=== PATIENT | male | born 1980 | race Caucasian/White ===

== ENCOUNTER 2016-10-19 18:35 | Emergency (ER) | payer OTHER ==
[~2016-10-19] VITALS: Ht 175.3 cm; Wt 99.8 kg
[2016-10-19] MEDS ORDERED: MUCINEX100 MG PO (18:49)
[2016-10-19] MEDS ORDERED: NORCO 5-325 TA1 EACH PO (20:25)
[2016-10-19] MEDS ORDERED: CRUTCH1 EACH (20:26)
== END 2016-10-19 20:40 | disposition home or self-care (01) ==
LOC: ED 18:35
DX: S93.402A Sprain of unspecified ligament of left ankle, initial encounter (principal); W10.8XXA Fall (on) (from) other stairs and steps, initial encounter
CPT/HCPCS: 73610; 99283

== ENCOUNTER 2018-07-28 17:14 | Inpatient (IN) | payer OTHER ==
[~2018-07-28] VITALS: Ht 175.3 cm; Wt 104.1 kg
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
[~2018-07-28 17:14] MED LIST: CRUTCH1 EACH; MUCINEX100 MG PO; NORCO 5-325 TA1 EACH PO
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
--- NOTE | 2018-07-28 20:05 | NUR ---
PATIENTS ADMISSION COMPLETED. PATIENT OREINTED TO FLOOR, ROOM AND CALL LIGHT. PATIENT DENIES ANY COMMENTS, QUESTIONS OR CONCERNS. NO NEEDS NOTED. CALL LIGHT IN REACH. AND FAMILY IS AT THE BEDSIDE. JAYESH GRAVES RN IN THE ROOM.
--- NOTE | 2018-07-28 20:07 | NUR ---
PT ARRIVES TO FLOOR VIA STRETCHER. PT ABLE TO SCOOT HIM SELF INDEPENDELTY TO HOSPITAL BED. PT RATES PAIN 4-5/10 STATES THIS IS TOLERABLE. PT DENIES NAUSEA OR SOB. PT ASSESSMENT COMPLETE. DRESSING TO R THIGH C/D/I. CMS INTACT. SCD'S IN PLACE. R LEG ELEVATED. PT FAMILY AT BEDSIDE. PT ORIENTED TO ROOM AND POC FOR THIS SHIFT. CALL LIGHT IN REACH. PT DENIES NEEDS AT THIS TIME.
--- NOTE | 2018-07-28 20:46 | NUR ---
PT REPORTS PAIN INCREASING TO ~6/10, WITH SHOOTING UP TO 10/10. PT AGREES TO START WITH TORADOL IV, ADMINISTERED. EDUCATION PROVIDED REGARDING AVAILABILITY OF NARCOTIC PAIN MEDICATION. PT STATES UNDERSTANDING BUT SHAKES HEAD, "NO". PT STATES THAT HE NEEDS TO URINATE. URINAL PROVIDED. PT WONDERS IF CAN BRING HIM DINNER. PT DENIES OTHER NEEDS AT THIS TIME. CALL LIGHT IN REACH. FAMILY AT BEDSIDE.
--- NOTE | 2018-07-28 21:32 | NUR ---
PT REPORTS CONTINUED PAIN, UP TO 12/12. PRN MORPHINE, 4 MG ADMINISTERED. EDUCATION REGARDING PAIN MEDICATION AND SAFETY PROVIDED. PT DENIES FURTHER QUESTIONS AT THIS TIME. VISITING WITH FAMILY AT BEDSIDE.
--- NOTE | 2018-07-28 22:28 | NUR ---
PT UTILIZES CALL LIGHT, REPORTS PAIN TO R THIGH, 09/11. REQUESTS ADDITIONAL PAIN MEDICATION. STATES THAT "SHOOTING PAIN HAS STOPPED", BUT THAT THROBBING PAIN IS STILL PRESENT. PT DENIES FURTHER NEEDS. PT WENT TO GET PT FOOD. CALL LIGHT WITHIN REACH.
--- NOTE | 2018-07-29 00:53 | NUR ---
PT UTILIZES CALL LIGHT, REPORTS PAIN TO R THIGH 7-8/10. PRN PERCOCET, 2 TABS, ADMINISTERED. PT RESTING IN BED WITH AT BEDSIDE, ATE PIZZA. TOLERATED WELL. PT DENIES FURTHER NEEDS AT THIS TIME. CALL LIGHT WITHIN REACH.
--- NOTE | 2018-07-29 01:33 | NUR ---
PT ASSESSMENT COMPLETE. PT REPORTS R SIDED SCD PUMP CAUSING INCREASED PAIN, REMOVED FOR COMFORT. DRESSING TO R THIGH D/I. SMALL AMOUNT OF SHADOWING PRESENT TO KERLEX BELOW ACEWRAP. CMS INTACT. PT REPORTS LOCAL NUMBNESS TO THIGH. PT'S CONTINUES AT BEDSIDE. NEEDS DENIED AT THIS TIME. CALL LIGHT IN REACH.
--- NOTE | 2018-07-29 03:22 | NUR ---
PT UTILIZES CALL LIGHT, REPORTS THAT PAIN IS INCREASING TO 7/10. REQUESTS ADDITIONAL PRN PAIN MEDICATION. PRN MORPHINE, 2 MG, ADMINISTERED. PT DENIES FURTHER NEEDS AT THIS TIME. CALL LIGHT IN REACH. PT'S SLEEPING AT BEDSIDE.
--- NOTE | 2018-07-29 04:40 | NUR ---
pt resting in bed with eyes closed. respirations are even and unlabored. pt appears to be sleeping, does not wake while proposal writer in doorway. pt's sleeping on couch. call light in reach.
--- NOTE | 2018-07-29 06:29 | NUR ---
PT ASSESSMENT COMPLETE. PT UTILIZES CALL LIGHT, REQUESTS PAIN MEDICATION FOR 7/10 PAIN TO R THIGH. KERLEX BELOW BHARATI WRAP CONTINUES WITH UNCHANGED AMOUNT OF SHADOWING. CMS INTACT TO ALL EXTREMITIES. PT CONTINUES TO REPORT LOCAL NUMBNESS TO R THIGH. PT DENIES FURTHER NEEDS AT THIS TIME. QUESTIONS WHEN HE WILL GET TO GO HOME. EDUCATION PROVIDED. CALL LIGHT IN REACH. PT'S AWAKE ON COUCH.
--- NOTE | 2018-07-29 06:41 | NUR ---
PT SLEPT FOR SHORT TIME THIS SHIFT. PERCOCET, MORPHINE, AND TORADOL FOR PAIN. NO NAUSEA OR SOB. ABD, KERLEX, AND BHARATI TO R THIGH. SMALL SHADOWING TO KERLEX, UNCHANGED THIS SHIFT. NUMB LOCALLY PER PT. CMS INTACT. SCD REMOVED ON R DUE TO CAUSING INCREASE PAIN. SCD TO L LEG ONLY. PT USING URINAL THIS SHIFT. UO QS. D5LR @ 85.
--- NOTE | 2018-07-29 09:44 | NUR ---
PT RESTING IN BED. DROWSY BUT EASILY AWAKENS. REPORTS 9/10 PAIN IN RIGHT THIGH. MEDICATED WITH 0.5MG IV DILAUDID. DID NOT ORDER BREAKFAST, REPORTS DECREASED APPETITE, DENIES NAUSEA. RIGHT THIGH DRESSED WITH GAUZE, ABD, AND BHARATI WRAP, DRESSING CDI. PT REPORTS NUMBNESS JUST ABOVE THE KNEE BUT CMS OTHERWISE INTACT. IV INFUSING WNL. AT BEDSIDE. CALL LIGHT WITHIN REACH.
--- NOTE | 2018-07-29 10:09 | NUR ---
PATIENT IN BED WATCHING TV, VISITORS IN ROOM. CALL LIGHT IN REACH. NO FURTHER NEEDS AT THIS TIME.
--- NOTE | 2018-07-29 11:10 | NUR ---
PT MINIMAL TO NO ASSIST GETTING OUT OF BED. REPORTED SEVERE PAIN WITH MOVEMENT. ABLE TO STAND AND ATTEMPTED TO AMB WITH WALKER BUT TOO PAINFUL. BACK TO BED. MEDICATED WITH 2 TABS PERCOCET. CALL LIGHT WITHIN REACH.
--- NOTE | 2018-07-29 11:52 | NUR ---
PT AMB HALLWAY WITH P.T. USING CRUTCHES. PAINFUL WITH MOVEMENT BUT TANYA WELL.
[2018-07-29] MEDS ORDERED: IBUPROFEN600 MG PT (11:59)
[2018-07-29] MEDS ORDERED: OXYCODON-ACETA1 EAC2 PO (12:00)
[2018-07-29] MEDS ORDERED: TYLENOL325 MG PO (12:00)
[2018-07-29] MEDS ORDERED: [UNRECOGNIZED DRUG - SUPPLY] TOP (12:06)
[2018-07-29] MEDS ORDERED: HIBICLENS118 ML TOP (12:06)
--- NOTE | 2018-07-29 12:15 | NUR ---
DR. AWAD TOOK DOWN DRESSING AND REMOVED PACKING THIS AM. REDRESSED WITH GAUZE AND BHARATI. SMALL AMOUNT OF BRIGHT RED DRAINAGE ON OLD DRESSING. PT SITTING UP IN BED. AT BEDSIDE. CALL LIGHT WITHIN REACH.
== END 2018-07-29 13:50 | disposition home or self-care (01) | DRG 605 ==
LOC: ED 17:14 → MS 18:06
PROVIDERS: ADMIT Surgery
PROC: 0JCL0ZZ Extirpation of Matter from Right Upper Leg Subcutaneous Tissue and Fascia, Open Approach (ICD-10-PCS; principal; 2018-07-28 18:09)
DX: S71.131A Puncture wound without foreign body, right thigh, initial encounter (principal); W32.0XXA Accidental handgun discharge, initial encounter
CPT/HCPCS: 00400; 36415; 72170; 73552; 80048; 80053; 82150; 82550; 83690; 85025; 86850; 86900; 86901; 90471; 90715; 96374; 96375; 97161; 99285-25; G0480; J0330; J0690; J1100; J1170; J1644; J1885; J2250; J2270; J2405; J2704; J2765; J3010; J7030; J7120

== ENCOUNTER 2019-07-16 17:36 | Emergency (ER) | payer OTHER ==
[~2019-07-16] VITALS: Ht 175.3 cm; Wt 99.8 kg
[~2019-07-16 17:36] MED LIST changes: +HIBICLENS118 ML TOP; +IBUPROFEN600 MG PT; +OXYCODON-ACETA1 EAC2 PO; +TYLENOL325 MG PO; +[UNRECOGNIZED DRUG - SUPPLY] TOP
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
[2019-07-16] MEDS ORDERED: LISINOPRIL-HCT1 EACH PO (17:47)
[2019-07-16] MEDS ORDERED: ADDERALL XR 2525 MG PO (17:50)
[2019-07-16] MEDS ORDERED: KEFLEX500 MG PO (21:50)
--- NOTE | 2019-07-17 15:55 | EKG ---
[facility] [address] [facility] [place] [address] Signed Normal sinus rhythm Possible Left atrial enlargement Possible Inferior infarct , age undetermined Abnormal ECG No previous ECGs available Confirmed by RADU GREEN MD ([id number]) on 07/17/2019 3:55:00 PM Electronically Signed By: RADU GREEN MD 07/17/19 1555 PATIENT NAME: ARCELIA BECKHAM LUIS CARLOS Electrocardiogram DATE OF : 84 PHYSICIAN: RADU GREEN MD REPORT #: [id number] REPORT IS CONFIDENTIAL AND NOT TO BE RELEASED WITHOUT AUTHORIZATION
--- NOTE | 2019-07-17 15:55 | EKG ---
[facility] [address] [facility] [place] [address] Signed Normal sinus rhythm Inferior infarct (cited on or before 16-JUL-2019) Abnormal ECG When compared with ECG of 16-JUL-2019 17:57, (Unconfirmed) No significant change was found Confirmed by RADU GREEN MD ([id number]) on 07/17/2019 3:55:15 PM Electronically Signed By: RADU GREEN MD 07/17/19 1555 PATIENT NAME: ARCELIA BECKHAM Electrocardiogram DATE OF : 84 PHYSICIAN: RADU GREEN MD REPORT #: [id number] REPORT IS CONFIDENTIAL AND NOT TO BE RELEASED WITHOUT AUTHORIZATION
== END 2019-07-16 21:57 | disposition home or self-care (01) ==
LOC: ED 17:36
DX: R55 Syncope and collapse (principal); I10 Essential (primary) hypertension; Z79.899 Other long term (current) drug therapy
CPT/HCPCS: 71045; 80053; 84484; 85025; 93005; 93010; 99284-25; A9270

== ENCOUNTER 2020-07-12 02:50 | Emergency (ER) | payer OTHER ==
[~2020-07-12] VITALS: Ht 175.3 cm; Wt 102.1 kg
[~2020-07-12 02:50] MED LIST changes: +ADDERALL XR 2525 MG PO; +KEFLEX500 MG PO; +LISINOPRIL-HCT1 EACH PO
--- OUTSIDE RECORDS SUMMARY | 2020-07-12 02:52 | XMS ---
PreManage Notification: ARCELIA BECKHAM Security Ui Ux Engineer Events No recent Security Events currently on file CRITERIA MET - [facility] CARE PROVIDERS There are no care providers on record at this time. Tania has no Care Guidelines for this patient. Josias VISIT COUNT (12 MO.) 2 JESSICA Rosado TOTAL 2 NOTE: Visits indicate total known visits. ED/C VISIT TRACKING (12 MO.) 07/12/2020 02:50 [facility] TYPE: Emergency COMPLAINT: - LT KNEE PAIN 07/16/2019 17:37 [facility] OR TYPE: Emergency COMPLAINT: - DIZZINESS/NECK PAIN DIAGNOSES: - Dizziness and giddiness - Syncope and collapse - Essential (primary) hypertension - Other roasterman (current) drug therapy INPATIENT VISIT TRACKING (12 MO.) No inpatient visits to display in this time frame [email or web address]
[2020-07-12] MEDS ORDERED: HYDROCHLOROTH12.5 MG PO (03:06)
[2020-07-12] MEDS ORDERED: DICLOFENAC SODI75 MG PO (03:26)
[2020-07-12] MEDS ORDERED: HYDROCODON-ACE1 EA10 PO (03:26)
== END 2020-07-12 03:57 | disposition home or self-care (01) ==
LOC: ED 02:50
DX: M25.562 Pain in left knee (principal); I10 Essential (primary) hypertension; Z79.899 Other long term (current) drug therapy
CPT/HCPCS: 73560; 99283-25

== ENCOUNTER 2021-08-01 15:31 | Emergency (ER) | payer OTHER ==
[~2021-08-01] VITALS: Ht 175.3 cm; Wt 102.1 kg
[~2021-08-01 15:31] MED LIST changes: +DICLOFENAC SODI75 MG PO; +HYDROCHLOROTH12.5 MG PO; +HYDROCODON-ACE1 EA10 PO
--- OUTSIDE RECORDS SUMMARY | 2021-08-01 15:34 | XMS ---
PreManage Notification: ARCELIA BECKHAM Security Plaque Maker Events No recent Security Events currently on file CRITERIA MET - [facility] CARE PROVIDERS LISS LUIS Physician Brick Washer 07/12/2020-Current PHONE: Unknown Tania has no Care Guidelines for this patient. Josias VISIT COUNT (12 MO.) 1 JESSICA Rosado TOTAL 1 NOTE: Visits indicate total known visits. ED/UCC VISIT TRACKING (12 MO.) 08/01/2021 15:32 [facility] OR TYPE: Emergency COMPLAINT: - RT SIDED FACIAL NUMBNESS INPATIENT VISIT TRACKING (12 MO.) No inpatient visits to display in this time frame [email or web address]
[2021-08-01] MEDS ORDERED: ACYCLOVIR800 MG PO (15:57)
[2021-08-01] MEDS ORDERED: PREDNISONE20 MG PO (15:57)
== END 2021-08-01 16:55 | disposition home or self-care (01) ==
LOC: ED 15:31
DX: G51.0 Bell's palsy (principal); I10 Essential (primary) hypertension
CPT/HCPCS: 99283

== ENCOUNTER 2022-04-27 14:00 | Emergency (ER) | payer OTHER ==
[~2022-04-27] VITALS: Ht 175.3 cm; Wt 111.1 kg
[~2022-04-27 14:00] MED LIST changes: +ACYCLOVIR800 MG PO; +PREDNISONE20 MG PO
--- NOTE | 2022-04-28 07:21 | EKG ---
[facility] [address] [place] [address] Signed Sinus tachycardia Inferior infarct (cited on or before 16-JUL-2019) Abnormal ECG When compared with ECG of 16-JUL-2019 21:06, Vent. rate has increased BY 52 BPM Confirmed by REMY LANDIN MD ([id number]) on 04/28/2022 7:21:19 AM Electronically Signed By: REMY LANDIN MD 04/28/22 0721 PATIENT NAME: ARCELIA BECKHAM Electrocardiogram DATE OF : 84 PHYSICIAN: REMY LANDIN MD REPORT #: [id number] REPORT IS CONFIDENTIAL AND NOT TO BE RELEASED WITHOUT AUTHORIZATION
[2022-04-28] MEDS ORDERED: METOPROLOL SUCC50 MG PO (09:56)
== END 2022-04-27 19:06 | disposition home or self-care (01) ==
LOC: ED 14:00
DX: I16.0 Hypertensive urgency (principal); F14.10 Cocaine abuse, uncomplicated; I10 Essential (primary) hypertension; Z79.899 Other long term (current) drug therapy
CPT/HCPCS: 36415; 80053; 81003; 84443; 84484; 85025; 85379; 93005; 93010; 96361; 96374; 96375; 96376; 99285-25; J0360; J2060; J7121

== ENCOUNTER 2022-04-28 08:57 | Emergency (ER) | payer OTHER ==
[~2022-04-28] VITALS: Ht 175.3 cm; Wt 111.1 kg
--- OUTSIDE RECORDS SUMMARY | 2022-04-28 09:06 | XMS ---
PreManage Notification: ARCELIA BECKHAM Security Health Information Management Director Events No recent Security Events currently on file CRITERIA MET - [facility] - 2 Visits in 30 Days CARE PROVIDERS LISS LUIS Physician 07/12/2020-Current PHONE: Unknown Tania has no Care Guidelines for this patient. Josias VISIT COUNT (12 MO.) 3 [facility] TOTAL 3 NOTE: Visits indicate total known visits. ED/UCC VISIT TRACKING (12 MO.) 04/28/2022 08:57 [facility] TYPE: Emergency COMPLAINT: - FAST HEART RATE, HIGH B/P, ANXIETY 04/27/2022 14:00 [facility] TYPE: Emergency COMPLAINT: - HEART PALPITATIONS 08/01/2021 15:32 [facility] OR TYPE: Emergency COMPLAINT: - RT SIDED FACIAL NUMBNESS DIAGNOSES: - Essential (primary) hypertension - Harris's palsy - Facial weakness INPATIENT VISIT TRACKING (12 MO.) No inpatient visits to display in this time frame [email or web address]
[2022-04-28] MEDS ORDERED: METOPROLOL SUCC50 MG PO (09:56)
--- NOTE | 2022-04-29 07:28 | EKG ---
[facility] [address] [facility] [place] [address] Signed Sinus tachycardia T wave abnormality, consider inferior ischemia Abnormal ECG Confirmed by REMY LANDIN MD ([id number]) on 04/29/2022 7:28:07 AM Electronically Signed By: REMY LANDIN MD 04/29/22 0728 PATIENT NAME: ARCELIA BECKHAM LUIS CARLOS Electrocardiogram DATE OF : 84 PHYSICIAN: REMY LANDIN MD REPORT #: [id number] REPORT IS CONFIDENTIAL AND NOT TO BE RELEASED WITHOUT AUTHORIZATION
[2022-04-29] MEDS ORDERED: HYDROXYZINE HCL25 MG PO (22:50)
== END 2022-04-28 10:44 | disposition home or self-care (01) ==
LOC: ED 08:57
DX: I10 Essential (primary) hypertension (principal)
CPT/HCPCS: 36415; 71045; 80053; 84484; 85025; 93005; 93010; 96374; 96375; 99285-25; J2060; J7030

== ENCOUNTER 2022-04-29 21:30 | Emergency (ER) | payer OTHER ==
[~2022-04-29] VITALS: Ht 175.3 cm; Wt 111.1 kg
[~2022-04-29 21:30] MED LIST changes: +METOPROLOL SUCC50 MG PO
--- OUTSIDE RECORDS SUMMARY | 2022-04-29 21:34 | XMS ---
PreManage Notification: ARCELIA BECKHAM Security Band Machine Operator Events No recent Security Events currently on file CRITERIA MET - [facility] - 2 Visits in 30 Days CARE PROVIDERS LISS LUIS Physician 07/12/2020-Current PHONE: Unknown Tania has no Care Guidelines for this patient. Josias VISIT COUNT (12 MO.) 4 [facility] TOTAL 4 NOTE: Visits indicate total known visits. ED/C VISIT TRACKING (12 MO.) 04/29/2022 21:31 [facility] TYPE: Emergency COMPLAINT: - PANIC ATTACK HIGH BLOOD PRESSURE 04/28/2022 08:57 [facility] OR TYPE: Emergency COMPLAINT: - FAST HEART RATE, HIGH B/P, ANXIETY 04/27/2022 14:00 [facility] TYPE: Emergency COMPLAINT: - HEART PALPITATIONS DIAGNOSES: - Other nursing home (current) drug therapy - Essential (primary) hypertension - Cocaine abuse, uncomplicated - Palpitations - Hypertensive urgency 08/01/2021 15:[address] [facility] TYPE: Emergency COMPLAINT: - RT SIDED FACIAL NUMBNESS DIAGNOSES: - Harris's palsy - Facial weakness - Essential (primary) hypertension INPATIENT VISIT TRACKING (12 MO.) No inpatient visits to display in this time frame [id number]
[2022-04-29] MEDS ORDERED: HYDROXYZINE HCL25 MG PO (22:50)
[2022-04-30] MEDS ORDERED: ZESTRIL20 MG PO (00:15)
[2022-05-01] MEDS ORDERED: HYDROCODON-ACE1 EA10 PO (06:29)
== END 2022-04-30 00:30 | disposition home or self-care (01) ==
LOC: ED 21:30
DX: I10 Essential (primary) hypertension (principal); Z79.899 Other long term (current) drug therapy
CPT/HCPCS: 96374; 96375; 99283-25; J2060

== ENCOUNTER 2022-05-01 05:33 | Emergency (ER) | payer OTHER ==
[~2022-05-01] VITALS: Ht 175.3 cm; Wt 111.1 kg
[~2022-05-01 05:33] MED LIST changes: +HYDROXYZINE HCL25 MG PO; +ZESTRIL20 MG PO
--- OUTSIDE RECORDS SUMMARY | 2022-05-01 05:36 | XMS ---
PreManage Notification: ARCELIA BECKHAM Security Caustic Mixer Events No recent Security Events currently on file CRITERIA MET - [facility] - 2 Visits in 30 Days CARE PROVIDERS LISS LUIS Physician 07/12/2020-Current PHONE: Unknown Tania has no Care Guidelines for this patient. Josias VISIT COUNT (12 MO.) 5 [facility] TOTAL 5 NOTE: Visits indicate total known visits. ED/C VISIT TRACKING (12 MO.) 05/01/2022 05:35 [facility] TYPE: Emergency COMPLAINT: - R FOOT INJ 04/29/2022 21:31 [facility] [place] TYPE: Emergency COMPLAINT: - PANIC ATTACK HIGH BLOOD PRESSURE 04/28/2022 08:57 [facility] Edith [facility] OR TYPE: Emergency COMPLAINT: - FAST HEART RATE, HIGH B/P, ANXIETY 04/27/2022 14:00 [facility] TYPE: Emergency COMPLAINT: - HEART PALPITATIONS DIAGNOSES: - Other long term acute care registered nurse (current) drug therapy - Essential (primary) hypertension - Cocaine abuse, uncomplicated - Palpitations - Hypertensive urgency 08/01/2021 15:32 [facility] TYPE: Emergency COMPLAINT: - RT SIDED FACIAL NUMBNESS DIAGNOSES: - Harris's palsy - Facial weakness - Essential (primary) hypertension INPATIENT VISIT TRACKING (12 MO.) No inpatient visits to display in this time frame [id number]
[2022-05-01] MEDS ORDERED: HYDROCODON-ACE1 EA10 PO (06:29)
== END 2022-05-01 06:49 | disposition home or self-care (01) ==
LOC: ED 05:33
DX: S93.401A Sprain of unspecified ligament of right ankle, initial encounter (principal); I10 Essential (primary) hypertension; Z79.899 Other long term (current) drug therapy; X50.1XXA Overexertion from prolonged static or awkward postures, initial encounter
CPT/HCPCS: 73610; 99283-25; A9270

== ENCOUNTER 2022-06-03 19:48 | Emergency (ER) | payer OTHER ==
[~2022-06-03] VITALS: Ht 175.3 cm; Wt 109.8 kg
--- OUTSIDE RECORDS SUMMARY | 2022-06-03 19:50 | XMS ---
PreManage Notification: ARCELIA BECKHAM Security Air Dispatcher Events No recent Security Events currently on file CRITERIA MET - PDMP CARE PROVIDERS [place] Physician Assignment Clerk 07/12/2020-Current PHONE: Unknown Tania has no Care Guidelines for this patient. Josias VISIT COUNT (12 MO.) 6 JESSICA [facility]ado TOTAL 6 NOTE: Visits indicate total known visits. ED/C VISIT TRACKING (12 MO.) 06/03/2022 19:49 [facility] TYPE: Emergency COMPLAINT: - HEART ISSUES 05/01/2022 05:35 [facility] TYPE: Emergency COMPLAINT: - R FOOT INJ DIAGNOSES: - Overexertion from prolonged static or awkward postures, initial encounter - Essential (primary) hypertension - Other prison (current) drug therapy - Sprain of unspecified ligament of right ankle, initial encounter 04/29/2022 21:31 [facility] TYPE: Emergency COMPLAINT: - PANIC ATTACK HIGH BLOOD PRESSURE DIAGNOSES: - Other terminal make up operator (current) drug therapy - Essential (primary) hypertension 04/28/2022 08:57 [facility] TYPE: Emergency COMPLAINT: - FAST HEART RATE, HIGH B/P, ANXIETY DIAGNOSES: - Palpitations - Essential (primary) hypertension 04/27/2022 14:00 [facility] TYPE: Emergency COMPLAINT: - HEART PALPITATIONS DIAGNOSES: - Cocaine abuse, uncomplicated - Palpitations - Hypertensive urgency - Other terminal make up operator (current) drug therapy - Essential (primary) hypertension 08/01/2021 15:32 [facility] TYPE: Emergency COMPLAINT: - RT SIDED FACIAL NUMBNESS DIAGNOSES: - Facial weakness - Essential (primary) hypertension - Harris's palsy INPATIENT VISIT TRACKING (12 MO.) No inpatient visits to display in this time frame [email or web address]
--- NOTE | 2022-06-04 17:10 | EKG ---
[facility] [address] [facility] [place] [address] Signed Sinus tachycardia Possible Inferior infarct , age undetermined Abnormal ECG No previous ECGs available Confirmed by RADU GREEN MD ([id number]) on 06/04/2022 5:09:59 PM Electronically Signed By: RADU GREEN MD 06/04/22 1710 PATIENT NAME: ARCELIA BECKHAM Electrocardiogram DATE OF : 84 PHYSICIAN: RADU GREEN MD REPORT #: [id number] REPORT IS CONFIDENTIAL AND NOT TO BE RELEASED WITHOUT AUTHORIZATION
== END 2022-06-03 21:30 | disposition home or self-care (01) ==
LOC: ED 19:48
DX: R00.0 Tachycardia, unspecified (principal); I10 Essential (primary) hypertension; Z79.899 Other long term (current) drug therapy
CPT/HCPCS: 36415; 71045; 80053; 83735; 84484; 85025; 93005; 93010; 96374; 99285-25; J2060

== ENCOUNTER 2024-06-07 00:23 | Emergency (ER) | payer OTHER ==
[~2024-06-07] VITALS: Ht 175.3 cm; Wt 100.1 kg
[2024-06-07] MEDS ORDERED: METOPROLOL SUC100 MG PO (00:40)
[2024-06-07] MEDS ORDERED: OZEMPIC0.25 MG/02 SUB-Q (00:41)
[2024-06-07] MEDS ORDERED: ATORVASTATIN CA40 MG PO (00:42)
[2024-06-07] MEDS ORDERED: METFORMIN HCL500 M1 PO (00:42)
[2024-06-07] MEDS ORDERED: MEN'S MULTIVI200 MCG PO (00:43)
[2024-06-07] MEDS ORDERED: HYDROCODONE/ACETA 5/325 TAB PO ONE (00:45)
[2024-06-07] MEDS ORDERED: HYDROCODONE BIT/ACETAMINOPHEN 5/325 MG 1 TAB HOME.PACK PO ONE (01:30)
[2024-06-07 01:50] VITALS: BP 157/105
== END 2024-06-07 01:50 | disposition home or self-care (01) ==
LOC: ED 00:23
DX: S93.401A Sprain of unspecified ligament of right ankle, initial encounter (principal); W14.XXXA Fall from tree, initial encounter; I10 Essential (primary) hypertension; Z79.899 Other long term (current) drug therapy; Z79.84 Long term (current) use of oral hypoglycemic drugs
CPT/HCPCS: 73610; 99283; A9270

== ENCOUNTER 2024-09-22 18:51 | Emergency (ER) | payer OTHER ==
[~2024-09-22] VITALS: Ht 175.3 cm; Wt 98.8 kg
[~2024-09-22 18:51] MED LIST changes: +ATORVASTATIN CA40 MG PO; +MEN'S MULTIVI200 MCG PO; +METFORMIN HCL500 M1 PO; +METOPROLOL SUC100 MG PO; +OZEMPIC0.25 MG/02 SUB-Q
[2024-09-22 22:13] VITALS: BP 125/90
--- NOTE | 2024-09-23 23:24 | EKG ---
[facility] [address] [facility] [place] [address] Signed Sinus tachycardia Possible Inferior infarct (cited on or before 03-JUN-2022) Abnormal ECG When compared with ECG of 03-JUN-2022 19:51, Nonspecific T wave abnormality no longer evident in Lateral leads Confirmed by Segundo Watts MD () on 09/23/2024 11:24:39 PM Electronically Signed By: SEGUNDO WATTS MD 09/23/24 2324 PATIENT NAME: ARCELIA BECKHAM Electrocardiogram DATE OF : 84 PHYSICIAN: SEGUNDO WATTS MD REPORT #: [id number] REPORT IS CONFIDENTIAL AND NOT TO BE RELEASED WITHOUT AUTHORIZATION
== END 2024-09-22 22:16 | disposition home or self-care (01) ==
LOC: ED 18:51
DX: T44.7X1A Poisoning by beta-adrenoreceptor antagonists, accidental (unintentional), initial encounter (principal); F41.9 Anxiety disorder, unspecified; I10 Essential (primary) hypertension; Z79.899 Other long term (current) drug therapy
CPT/HCPCS: 93005; 93010; 99284